=== PATIENT | male | born 1970 | race Caucasian/White ===

== ENCOUNTER 2018-02-01 08:01 | Day surgery (SDC) | payer OTHER ==
[2018-02-01] MEDS: NS 1,000 ML IV (08:31)
== END 2018-02-01 09:45 | disposition home or self-care (01) ==
LOC: M OPP 08:01
DX: Z12.11 Encounter for screening for malignant neoplasm of colon (principal); K64.0 First degree hemorrhoids; E11.9 Type 2 diabetes mellitus without complications; I10 Essential (primary) hypertension; F17.210 Nicotine dependence, cigarettes, uncomplicated; F17.220 Nicotine dependence, chewing tobacco, uncomplicated; R12 Heartburn; G47.30 Sleep apnea, unspecified; Z79.899 Other long term (current) drug therapy; Z79.84 Long term (current) use of oral hypoglycemic drugs
CPT/HCPCS: G0105

== ENCOUNTER → 2019-11-18 | Outpatient (CLI) | payer OTHER ==
[~2019-11-18] MED LIST: ATOR1TAB21 PO; LISI10TA4 PO; METF500T13 PO; ROSU5TAB5 PO
== END ==
LOC: M LABSMTC 09:09
PROVIDERS: ATTEND Anesthesiology
DX: Z01.818 Encounter for other preprocedural examination (principal); Z11.59 Encounter for screening for other viral diseases

== ENCOUNTER → 2019-11-18 | Outpatient (CLI) | payer OTHER ==
--- NOTE | 2019-11-21 10:50 | ECGEPIP ---
[facility] Test Date: 2019-11-18 Pat Name: DARIO PRIEST Department: Room: - Gender: Male [place] Head[employer] Operator: RF : [id number] Requested By: Ken Smith Order Number: [id number] Reading MD: Dario García Measurements Intervals [place] Rate: 61 P: 37 CT: 192 QRS: 58 QRSD: 88 T: 40 QT: 401 QTc: 406 Interpretive Statements SINUS RHYTHM NORMAL ECG SEE DOWNTIME SCANNED RECORD
== END ==
LOC: M EKG 09:25
PROVIDERS: ATTEND Anesthesiology
DX: Z01.818 Encounter for other preprocedural examination (principal); Z11.59 Encounter for screening for other viral diseases
CPT/HCPCS: 93005; C9803; U0003

== ENCOUNTER 2019-11-23 06:11 | Day surgery (SDC) | payer OTHER ==
[~2019-11-23] VITALS: Ht 172.7 cm; Wt 103.0 kg
[~2019-11-23 06:11] MED LIST changes: +BUPIVACAINE/EPIN 0.25% 30 ML VIAL As Ordered ONE; +LR 1,000 ML IV ONE; +ceFAZolin SOD 2 GM in IV 1 EA IV ONE
[2019-11-23] MEDS ORDERED: ceFAZolin 2 GM/D5W 50 ML IV BAG (J0690 PER 500MG) As Ordered ONE (06:29)
[2019-11-23] MEDS ORDERED: KETOROLAC 60MG 2ML VIAL As Ordered ONE (07:17)
[2019-11-23] MEDS ORDERED: propofoL 200 MG/20 ML VIAL As Ordered ONE (07:17)
[2019-11-23] MEDS ORDERED: dexameTHASONE 4 MG/ML 1ML VIAL (J1100 PER 1MG) As Ordered ONE (07:17)
[2019-11-23] MEDS ORDERED: ACETAMINOPHEN 1000MG 100ML IV BTL (OFIRMEV) (J0131 PER 10MG) As Ordered ONE (07:17)
[2019-11-23] MEDS ORDERED: SUGAMMADEX SODIUM 500 MG/5 ML VIAL (BRIDION) As Ordered ONE (07:17)
[2019-11-23] MEDS ORDERED: ROCURONIUM BROMIDE 50 MG/5 ML VIAL As Ordered ONE (07:17)
[2019-11-23] MEDS ORDERED: ONDANSETRON 4MG/2ML VIAL As Ordered ONE (07:17)
[2019-11-23] MEDS ORDERED: MIDAZOLAM INJ 2MG/2ML VIAL (J2250 PER 1MG) As Ordered ONE (07:17)
[2019-11-23] MEDS ORDERED: LIDOCAINE 2% 100MG/5ML SDV (FOR ANES.) As Ordered ONE (07:17)
[2019-11-23] MEDS ORDERED: fentaNYL 100 MCG/2 ML INJECTION (J3010) As Ordered ONE ×2 (07:18→07:58)
[2019-11-23] MEDS ORDERED: oxyCODONE 5MG TAB As Ordered ONE ×2 (09:02→10:42)
[2019-11-23] MEDS ORDERED: HYDROMORPHONE HCL 0.5 MG/ 0.5 ML SYRINGE (J1170 PER 1) As Ordered ONE (09:03)
[2019-11-23] MEDS: oxyCODONE 5MG TAB PO PRN ×2 (09:08→10:45)
[2019-11-23] MEDS: HYDROMORPHONE HCL 0.5 MG/ 0.5 ML SYRINGE (J1170 PER 1) IV PRN ×3 (09:08→09:25)
[2019-11-23] MEDS ORDERED: LR 1,000 ML IV SCH (09:15)
[2019-11-23] MEDS ORDERED: NORCO, ANEXSIA 5/325MG TABLET (HYDROcodone/ACETAMINOPHEN) PO PRN (09:15)
[2019-11-23] MEDS ORDERED: ONDANSETRON 4MG/2ML VIAL IV PRN (09:15)
[2019-11-23] MEDS ORDERED: fentaNYL 100 MCG/2 ML INJECTION (J3010) IV PRN (09:15)
[2019-11-23 11:20] VITALS: BP 131/90
--- NOTE | 2019-12-07 13:00 | RO ---
DATE OF OPERATION: 11/23/19 PREOPERATIVE DIAGNOSIS: Incarcerated umbilical hernia. POSTOPERATIVE DIAGNOSIS: Incarcerated umbilical hernia. PROCEDURE: Robotic incarcerated umbilical hernia repair. SURGEON: Jerardo Darby DO PACKAGE HANDLER: Clarissa Neves ANESTHESIA: General. EBL: 5. COMPLICATIONS: None. INDICATIONS FOR PROCEDURE: The patient is a 49-year-old male who presents with a large lump at his umbilicus, found to have incarcerated umbilical hernia. Recommendation was to proceed with robotic repair. Risks and benefits of procedure not limited to, but including bleeding, infection, hernia formation, hernia recurrence, damage to surrounding structures, need for further surgery were discussed in detail with the patient. Informed consent was obtained and procedure was planned. PROCEDURE: The patient was brought back to operating room #7. After sufficient sedation the abdomen was sterilely prepped and draped. Time out was done confirming proper patient, proper procedure. Following that, an 8 mm incision was made in the left lower quadrant and Veress needle was inserted, and the abdomen was insufflated to 50 mmHg. Veress needle was removed and an 8 mm Optiview robotic port was used to gain access to the abdomen. Once the abdomen was entered two more robotic ports were placed across the upper abdomen. The robot was connected to the ports from the console. The hernia contents were first reduced. There was omentum sticking up through a large defect. This was all gently reduced with traction. Once that was completed a horizontal incision as made into the preperitoneal space just superior to the umbilicus in the midline. Preperitoneal space was entered and dissected free heading inferiorly circumferentially around the hernia defect. The hernia sac was then completely dissected free and reduced. Once complete hernia sac was reduced the fascia was closed using #0 Stratafix suture. Once that was completed the 3 x 5 cm piece of ProGrip mesh was placed into the preperitoneal space over top of the closed fascial defect. The peritoneum was then closed over top of this using running V- Loc suture. Once this was completed the abdomen was desufflated, skin incisions were closed with 4-0 Vicryl subcuticular sutures. The abdomen was cleaned and dried; Steri-Strips, 4 x 4 and tape were applied. [facility] SYSTEM[facility]
== END 2019-11-23 11:30 | disposition home or self-care (01) ==
LOC: M SDC 06:11
PROVIDERS: ATTEND Surgery
DX: K42.0 Umbilical hernia with obstruction, without gangrene (principal); I10 Essential (primary) hypertension; G47.30 Sleep apnea, unspecified; K21.9 Gastro-esophageal reflux disease without esophagitis; R73.03 Prediabetes; Z79.899 Other long term (current) drug therapy
CPT/HCPCS: 49653; C1781; J0131; J0690; J1100; J1170; J1885; J2250; J2405; J3010